=== PATIENT | female | born 1985 | race Two or more races ===

== ENCOUNTER 2018-08-20 13:55 | Emergency (ER) | payer SELFPAY ==
[~2018-08-20] VITALS: Ht 160 cm; Wt 79.4 kg
[2018-08-20 14:10] VITALS: BP 135/79
[2018-08-20] MEDS ORDERED: TRAM50TA PO (14:32)
[2018-08-20] MEDS ORDERED: PENI500T PO (14:32)
--- NOTE | 2018-08-20 14:33 | PHYS DOC ---
Past Medical History Past Medical History: Anemia Past Surgical History: Hysterectomy Smoking: Cigarettes, Less than 1pk/day Alcohol Use: None Drug Use: None Adult General Chief Complaint Chief Complaint: DENTAL PROBLEM HPI HPI Patient is a 32 year old female who presents to the ER with complaints of lower left dental pain and a broken tooth for the last 2 weeks. Pt states she does not have a dentist and will not have insurance until September. She has been taking naproxen with no relief of her pain. She reports that the pain shoots to her left ear. She denies any fever, or drainage from the ear. Her pain is a 10/ 10. Review of Systems Review of Systems Constitutional: Denies fever or chills [] HENT: See HPI GI: Denies nausea, or vomiting Integument: Denies rash or skin lesions [] Complete systems were reviewed and found to be within normal limits, except as documented in this note. Allergies Allergies Allergies Coded Allergies Type Severity Reaction Last Updated Verified No Known Drug Allergies 08/20/18 No Physical Exam Physical Exam Constitutional: Well developed, well nourished, no acute distress, non-toxic appearance. [] HENT: Normocephalic, atraumatic, bilateral external ears normal, bilateral TMs normal, oropharynx moist, no oral exudates, nose normal; tooth #19 fractured with diffuse decay and mild gingival edema and redness no visible abscess [] Eyes: conjunctiva normal, no discharge. [] Neck: Normal range of motion, no tenderness, supple, no stridor. [] Cardiovascular:Heart rate regular rhythm, no murmur [] Lungs & Thorax: Bilateral breath sounds clear to auscultation [] Skin: Warm, dry, no erythema, no rash. [] Neurologic: Alert and oriented X 3, normal motor function, normal sensory function, no focal deficits noted. [] Psychologic: Affect normal, judgement normal, mood normal. [] Current Patient Data Vital Signs Vital Signs Date Time Temp Pulse Resp B/P (MAP) Pulse Ox O2 Delivery O2 Flow Rate FiO2 08/20/18 14:10 98.7 111 16 135/79 (97) 95 Room Air 98.7 EKG EKG [] Radiology/Procedures Radiology/Procedures [] Course & Med Decision Making Course & Med Decision Making Pertinent Labs and Imaging studies reviewed. (See chart for details) Dx: infected dental caries, dentalgia rx for amoxicillin and tramadol written. Dental referral list provided. Return to ER if symptoms worsen. [] Staff Physician Addendum: I was working in the ER during the course of this patient's visit. I was available for consultation as needed, but I was not directly involved in the care of this patient. Dragon Disclaimer Dragon Disclaimer This electronic medical record was generated, in whole or in part, using a voice recognition dictation system. Departure Departure Impression: Primary Impression: Dentalgia Additional Impression: Infected dental caries Disposition: HOME, SELF-CARE Condition: STABLE Referrals: NO PCP (PCP) Patient Instructions: Dental Caries, Dental Pain, [id number] Additional Instructions: Fill prescriptions and use as directed. Follow up with a dentist for treatment of your dental pain. Return to the ER if symptoms worsen. Scripts Penicillin V Potassium (PENICILLIN V POTASSIUM) 500 Mg Tablet 500 MG PO QID for 10 Days, #40 TAB 0 Refills Prov: ASTON DAVILA [employer] PROCESSING SUPERVISOR 08/20/18 Tramadol Hcl (TRAMADOL HCL) 50 Mg Tablet 50 MG PO Q6HRS PRN for PAIN for 3 Days, #12 TAB 0 Refills Prov: ASTON DAVILA [employer] PROCESSING SUPERVISOR 08/20/18 Problem Qualifiers ASTON DAVILA APRN Aug 20, 2018 14:33 ROSALIA CHAHAL MD Aug 20, 2018 17:20
== END 2018-08-20 14:45 | disposition home or self-care (01) ==
LOC: ER 13:55
DX: S02.5XXA Fracture of tooth (traumatic), initial encounter for closed fracture (principal); K02.9 Dental caries, unspecified; F17.210 Nicotine dependence, cigarettes, uncomplicated; Z90.710 Acquired absence of both cervix and uterus; X58.XXXA Exposure to other specified factors, initial encounter; Y93.89 Activity, other specified; Y92.89 Other specified places as the place of occurrence of the external cause; Y99.8 Other external cause status
CPT/HCPCS: 99283